=== PATIENT | male | born 1950 | race Caucasian/White ===

== ENCOUNTER 2019-04-10 20:55 | Emergency (ER) | payer OTHER ==
[~2019-04-10] VITALS: Ht 170.2 cm; Wt 86.3 kg
[2019-04-10] MEDS ORDERED: LIDOCAINE 1%-EPI 1:100K, 20ML SQ ONE (21:30)
[2019-04-10] MEDS ORDERED: L.E.T SOLUTION TP ONE ×4 (21:30→22:14)
[2019-04-10] MEDS ORDERED: LIDOCAINE 1%-EPI 1:100K, 20ML ONE (21:41)
--- NOTE | 2019-04-10 22:17 | NUR ---
Patient into room, with obviously bandaged left leg. Clinical screen complete, patient medical doctor very clear historian. Patient explained he was in a wordworking class and had trauma caused by a sharp step with plywood. Patient alert oriented, attached to monitor, vital signs stable. Orders placed by Dr. Murcia. provided physician bilingual office assistant (PA) Mandi, with L.E.T. solution and xylocaine. PA to bedside, with first dose of L.E.T. She is now at bedside cleaning up and removing foriegn bodies and suturing wound now. Awaiting further orders.
[2019-04-10] MEDS ORDERED: NEOSPORIN OINT. PKT 1 PACKET ONE (22:49)
--- NOTE | 2019-04-10 22:56 | NUR ---
RN to bedside after wound sutured. Per provider request, wound dressed with Neosporin, nonadherant pad placed over, then wrapped in roll gauze and held in place by a cohesive bandage. Patient also provided with socks. Already informed of discharge by provider. Patient detached from blood pressure cuff and spo2 sensor. Awaiting discharge paperwork.
[2019-04-10 23:09] VITALS: BP 112/98
== END 2019-04-10 23:10 | disposition home or self-care (01) ==
LOC: ED 22:50
DX: S81.812A Laceration without foreign body, left lower leg, initial encounter (principal); W22.8XXA Striking against or struck by other objects, initial encounter; Y93.89 Activity, other specified; Y92.098 Other place in other non-institutional residence as the place of occurrence of the external cause; Y99.8 Other external cause status
CPT/HCPCS: 12032; 99284